=== PATIENT | female | born 1950 | race Caucasian/White ===

== ENCOUNTER → 2016-09-01 | Outpatient (CLI) | payer OTHER ==
[~2016-09-01] MED LIST: CARAFATE1 G1 PO; CARDURA4 MG PO; CIPRODEX 0.3%-7.5 M1; CLARITIN10 MG PO; COREG25 MG PO; COZAAR50 M1 PO; FLAGYL500 MG PO; HUMIRA40 MG/0.1 SC; HYZAAR 50/12.5M1 TAB PO; INDOCIN25 MG PO; INDOCIN50 MG PO; LUMIGAN 3 ML3 ML OP; LUMIGAN50 DRP OPH; OXYCODONE HCL5 MG PO; PRILOSEC20 MG PO; PROTONIX40 MG PO; SYNTHROID,LEV200 MCG PO
[2016-09-01 10:30] LABS: BASO % 0.2 % (0.0-1.0); EOS # 0.2 10*3/uL (0.0-0.4); EOS % 1.4 % (1.0-4.0); HEMATOCRIT 32.5 % (37.0-47.0); HEMOGLOBIN 9.6 g/dl (12.0-16.0); IG # 0.1 10*3/uL (0.0-0.1); LYMPH # 1.8 10*3/uL (1.3-4.4); LYMPH % 13.8 % (27.0-41.0); MEAN CELL VOLUME 82.5 fl (81.0-99.0); MEAN CORPUSCULAR HGB 24.4 pg (27.0-31.0); MEAN CORPUSCULAR HGB CONC 29.5 g/dl (33.0-37.0); MEAN PLATELET VOLUME 9.1 fl (9.6-12.3); MONO # 0.9 10*3/uL (0.1-1.0); MONO % 7.2 % (3.0-9.0); NEUT # 9.9 10*3/uL (2.3-7.9); NEUT % 76.9 % (47.0-73.0); PLATELET COUNT AUTOMATED 313 10*3/uL (130-400); RED BLOOD COUNT 3.94 10*6/uL (4.10-5.10); WHITE BLOOD COUNT 12.9 10*3/uL (4.8-10.8)
[2016-09-01 10:32] LABS: BILIRUBIN NEGATIVE (NEGATIVE); BLOOD 3+ (NEGATIVE); CLARITY SL CLOUDY (CLEAR); COLOR YELLOW (YELLOW); GLUCOSE NEGATIVE (NEGATIVE); KETONE NEGATIVE (NEGATIVE); LEUKO ESTERASE 2+ (NEGATIVE); NITRITE NEGATIVE (NEGATIVE); PH 5.5 (5.0-9.0); PROTEIN 1+ (NEGATIVE); UROBILINOGEN 0.2 E.U./dl (0.2-1.0)
[2016-09-01 10:46] LABS: URINE TP/CRE RATIO 0.5 (<0.21)
[2016-09-01 11:00] LABS: ALBUMIN 3.1 gm/dl (3.1-4.5); MAGNESIUM 1.6 mg/dL (1.5-2.1); PHOSPHOROUS 3.6 mg/dL (2.5-4.9); POTASSIUM 4.6 mmol/L (3.5-5.1)
[2016-09-01 12:24] LABS: BACTERIA 3+; EPITHELIAL CELLS 51-100; RBC 41-50 rbc/hpf (0-2); URINE REFLEX COMMENT YES (NO); WBC 51-100 wbc/hpf (0-5)
== END | disposition home or self-care (01) ==
LOC: LAB 10:08
PROVIDERS: Internal Medicine Nephrology
DX: N18.3 Chronic kidney disease, stage 3 (moderate) (principal)

== ENCOUNTER → 2016-10-16 | Outpatient (CLI) | payer OTHER ==
[2016-10-16 16:33] LABS: ALBUMIN 2.8 gm/dl (3.1-4.5); PHOSPHOROUS 3.8 mg/dL (2.5-4.9); POTASSIUM 4.6 mmol/L (3.5-5.1)
== END | disposition home or self-care (01) ==
LOC: LAB 15:35
PROVIDERS: Internal Medicine Nephrology
DX: N17.9 Acute kidney failure, unspecified (principal)

== ENCOUNTER → 2017-01-15 | Outpatient (CLI) | payer MEDICARE, OTHER ==
[2017-01-15 11:48] LABS: BASO # 0.1 10*3/uL (0.0-0.1); BASO % 0.4 % (0.0-1.0); EOS # 0.4 10*3/uL (0.0-0.4); EOS % 3.3 % (1.0-4.0); HEMATOCRIT 36.7 % (37.0-47.0); HEMOGLOBIN 11.2 g/dl (12.0-16.0); LYMPH # 3.4 10*3/uL (1.3-4.4); LYMPH % 28.7 % (27.0-41.0); MEAN CELL VOLUME 79.6 fl (81.0-99.0); MEAN CORPUSCULAR HGB 24.3 pg (27.0-31.0); MEAN CORPUSCULAR HGB CONC 30.5 g/dl (33.0-37.0); MEAN PLATELET VOLUME 9.6 fl (9.6-12.3); MONO # 0.8 10*3/uL (0.1-1.0); MONO % 6.4 % (3.0-9.0); NEUT # 7.3 10*3/uL (2.3-7.9); NEUT % 60.9 % (47.0-73.0); PLATELET COUNT AUTOMATED 271 10*3/uL (130-400); RED BLOOD COUNT 4.61 10*6/uL (4.10-5.10); RED CELL DISTRI WIDTH 16.9 % (0-14.5); WHITE BLOOD COUNT 11.9 10*3/uL (4.8-10.8)
[2017-01-15 11:49] LABS: BILIRUBIN NEGATIVE (NEGATIVE); BLOOD 3+ (NEGATIVE); CLARITY CLOUDY (CLEAR); COLOR YELLOW (YELLOW); GLUCOSE NEGATIVE (NEGATIVE); KETONE NEGATIVE (NEGATIVE); LEUKO ESTERASE 1+ (NEGATIVE); NITRITE NEGATIVE (NEGATIVE); PH 5.5 (5.0-9.0); PROTEIN TRACE (NEGATIVE); SPECIFIC GRAVITY 1.015 (1.005-1.030); UROBILINOGEN 0.2 E.U./dl (0.2-1.0)
[2017-01-15 12:05] LABS: URINE TP/CRE RATIO 0.4 (<0.21)
[2017-01-15 12:14] LABS: ALBUMIN 3.2 gm/dl (3.1-4.5); C-REACTIVE PROTEIN 1.48 MG/DL (0-0.3); MAGNESIUM 1.6 mg/dL (1.5-2.1); PHOSPHOROUS 3.6 mg/dL (2.5-4.9); POTASSIUM 4.4 mmol/L (3.5-5.1)
[2017-01-15 12:36] LABS: BACTERIA 2+; EPITHELIAL CELLS 15-20; RBC 51-100 rbc/hpf (0-2); URINE REFLEX COMMENT YES (NO)
== END | disposition home or self-care (01) ==
LOC: LAB 11:24
PROVIDERS: Internal Medicine Rheumatology
DX: N18.4 Chronic kidney disease, stage 4 (severe) (principal); E55.9 Vitamin D deficiency, unspecified; M54.9 Dorsalgia, unspecified; Z79.899 Other long term (current) drug therapy

== ENCOUNTER → 2017-05-14 | Outpatient (CLI) | payer MEDICARE, OTHER ==
[2017-05-14 14:07] LABS: BASO # 0.1 10*3/uL (0.0-0.1); BASO % 0.4 % (0.0-1.0); EOS # 0.3 10*3/uL (0.0-0.4); EOS % 2.7 % (1.0-4.0); HEMATOCRIT 33.8 % (37.0-47.0); HEMOGLOBIN 10.4 g/dl (12.0-16.0); LYMPH # 2.5 10*3/uL (1.3-4.4); LYMPH % 21.8 % (27.0-41.0); MEAN CELL VOLUME 83.3 fl (81.0-99.0); MEAN CORPUSCULAR HGB 25.6 pg (27.0-31.0); MEAN CORPUSCULAR HGB CONC 30.8 g/dl (33.0-37.0); MEAN PLATELET VOLUME 9.5 fl (9.6-12.3); MONO # 0.7 10*3/uL (0.1-1.0); MONO % 6.5 % (3.0-9.0); NEUT # 7.7 10*3/uL (2.3-7.9); NEUT % 68.2 % (47.0-73.0); PLATELET COUNT AUTOMATED 256 10*3/uL (130-400); RED BLOOD COUNT 4.06 10*6/uL (4.10-5.10); RED CELL DISTRI WIDTH 15.3 % (0-14.5); WHITE BLOOD COUNT 11.3 10*3/uL (4.8-10.8)
[2017-05-14 14:29] LABS: ALBUMIN 3.1 gm/dl (3.1-4.5); CREATININE 1.85 mg/dL (0.55-1.02); PHOSPHOROUS 3.1 mg/dL (2.5-4.9); POTASSIUM 4.3 mmol/L (3.5-5.1)
[2017-05-14 15:48] LABS: BILIRUBIN NEGATIVE (NEGATIVE); BLOOD 3+ (NEGATIVE); CLARITY CLEAR (CLEAR); COLOR YELLOW (YELLOW); GLUCOSE NEGATIVE (NEGATIVE); KETONE NEGATIVE (NEGATIVE); LEUKO ESTERASE NEGATIVE (NEGATIVE); NITRITE NEGATIVE (NEGATIVE); SPECIFIC GRAVITY 1.015 (1.005-1.030); UROBILINOGEN 0.2 E.U./dl (0.2-1.0)
[2017-05-14 15:56] LABS: URINE CREATININE RANDOM 72.1 mg/dL
[2017-05-14 15:57] LABS: RBC TNTC rbc/hpf (0-2)
== END | disposition home or self-care (01) ==
LOC: LAB 13:36
PROVIDERS: Internal Medicine Nephrology
DX: N18.4 Chronic kidney disease, stage 4 (severe) (principal); M45.9 Ankylosing spondylitis of unspecified sites in spine

== ENCOUNTER → 2017-08-21 | Outpatient (CLI) | payer MEDICARE, OTHER ==
[2017-08-21 13:19] LABS: BILIRUBIN NEGATIVE (NEGATIVE); BLOOD 3+ (NEGATIVE); CLARITY CLOUDY (CLEAR); COLOR YELLOW (YELLOW); GLUCOSE NEGATIVE (NEGATIVE); KETONE NEGATIVE (NEGATIVE); LEUKO ESTERASE NEGATIVE (NEGATIVE); NITRITE NEGATIVE (NEGATIVE); UROBILINOGEN 0.2 E.U./dl (0.2-1.0)
[2017-08-21 13:23] LABS: BASO # 0.1 10*3/uL (0.0-0.1); BASO % 0.5 % (0.0-1.0); EOS # 0.3 10*3/uL (0.0-0.4); EOS % 2.8 % (1.0-4.0); HEMATOCRIT 38.3 % (37.0-47.0); HEMOGLOBIN 11.6 g/dl (12.0-16.0); LYMPH # 2.9 10*3/uL (1.3-4.4); LYMPH % 25.8 % (27.0-41.0); MEAN CELL VOLUME 85.7 fl (81.0-99.0); MEAN CORPUSCULAR HGB CONC 30.3 g/dl (33.0-37.0); MEAN PLATELET VOLUME 9.5 fl (9.6-12.3); MONO # 0.7 10*3/uL (0.1-1.0); MONO % 6.4 % (3.0-9.0); NEUT # 7.2 10*3/uL (2.3-7.9); NEUT % 64.2 % (47.0-73.0); PLATELET COUNT AUTOMATED 266 10*3/uL (130-400); RED BLOOD COUNT 4.47 10*6/uL (4.10-5.10); RED CELL DISTRI WIDTH 15.4 % (0-14.5); RETICULOCYTE % 1.13 % (0.50-2.50); WHITE BLOOD COUNT 11.3 10*3/uL (4.8-10.8)
[2017-08-21 13:27] LABS: BACTERIA 1+; RBC 41-50 rbc/hpf (0-2); URINE CREATININE RANDOM 95.8 mg/dL
[2017-08-21 13:54] LABS: ALBUMIN 3.4 gm/dl (3.1-4.5); CREATININE 1.7 mg/dL (0.55-1.02); PHOSPHOROUS 3.2 mg/dL (2.5-4.9); POTASSIUM 4.2 mmol/L (3.5-5.1)
[2017-08-21 13:55] LABS: ALBUMIN 3.3 gm/dl (3.1-4.5); CREATININE 1.7 mg/dL (0.55-1.02); POTASSIUM 4.2 mmol/L (3.5-5.1); THYROXINE (T4) TOTAL 13.9 ug/dl (4.8-13.9); TOTAL PROTEIN 8.2 gm/dL (6.4-8.2)
[2017-08-21 14:01] LABS: THYROID STIM HORMONE (HS) 0.299 uIU/ml (0.358-4.75)
[2017-08-21 14:43] LABS: VITAMIN D, 25-HYDROXY 27.3 ng/mL (30-100)
[2017-08-21 14:44] LABS: FERRITIN 30.5 ng/mL (10.0-291.0)
== END | disposition home or self-care (01) ==
LOC: LAB 12:52
PROVIDERS: Family Medicine; Internal Medicine Nephrology
DX: N18.4 Chronic kidney disease, stage 4 (severe) (principal); R79.89 Other specified abnormal findings of blood chemistry; R53.83 Other fatigue; E55.9 Vitamin D deficiency, unspecified; Z79.899 Other long term (current) drug therapy

== ENCOUNTER → 2018-02-26 | Outpatient (CLI) | payer MEDICARE, OTHER ==
[2018-02-26 15:52] LABS: BASO # 0.1 10*3/uL (0.0-0.1); BASO % 0.5 % (0.0-1.0); EOS # 0.3 10*3/uL (0.0-0.4); EOS % 2.9 % (1.0-4.0); HEMATOCRIT 35.8 % (37.0-47.0); HEMOGLOBIN 11.3 g/dl (12.0-16.0); LYMPH # 2.6 10*3/uL (1.3-4.4); MEAN CELL VOLUME 86.3 fl (81.0-99.0); MEAN CORPUSCULAR HGB 27.2 pg (27.0-31.0); MEAN CORPUSCULAR HGB CONC 31.6 g/dl (33.0-37.0); MEAN PLATELET VOLUME 9.8 fl (9.6-12.3); MONO # 0.8 10*3/uL (0.1-1.0); MONO % 6.6 % (3.0-9.0); NEUT # 7.8 10*3/uL (2.3-7.9); NEUT % 67.7 % (47.0-73.0); PLATELET COUNT AUTOMATED 259 10*3/uL (130-400); RED BLOOD COUNT 4.15 10*6/uL (4.10-5.10); RED CELL DISTRI WIDTH 14.4 % (0-14.5); WHITE BLOOD COUNT 11.6 10*3/uL (4.8-10.8)
[2018-02-26 16:04] LABS: COLOR YELLOW (YELLOW)
[2018-02-26 16:05] LABS: BILIRUBIN NEGATIVE (NEGATIVE); BLOOD 3+ (NEGATIVE); CLARITY CLOUDY (CLEAR); GLUCOSE NEGATIVE (NEGATIVE); KETONE NEGATIVE (NEGATIVE); LEUKO ESTERASE 1+ (NEGATIVE); NITRITE NEGATIVE (NEGATIVE); SPECIFIC GRAVITY 1.015 (1.005-1.030); UROBILINOGEN 0.2 E.U./dl (0.2-1.0)
[2018-02-26 16:12] LABS: BACTERIA 1+; EPITHELIAL CELLS 21-30; RBC TNTC rbc/hpf (0-2)
[2018-02-26 16:16] LABS: ALBUMIN 3.2 gm/dl (3.1-4.5); CREATININE 2.05 mg/dL (0.55-1.02)
== END | disposition home or self-care (01) ==
LOC: LAB 15:15
PROVIDERS: Internal Medicine Nephrology
DX: N18.3 Chronic kidney disease, stage 3 (moderate) (principal); M45.9 Ankylosing spondylitis of unspecified sites in spine; Z79.899 Other long term (current) drug therapy

== ENCOUNTER → 2019-12-04 | Outpatient (CLI) | payer MEDICARE, OTHER | END | disposition home or self-care (01) | LOC: US 11:19 | DX: I73.9 Peripheral vascular disease, unspecified (principal) ==

== ENCOUNTER → 2019-12-04 | Emergency (ER) | payer MEDICARE, OTHER ==
[~2019-12-04] VITALS: Ht 165.1 cm; Wt 129.3 kg
[2019-12-04 16:40] LABS: BASO # 0.1 10*3/uL (0.0-0.1); BASO % 0.5 % (0.0-1.0); EOS # 0.5 10*3/uL (0.0-0.4); EOS % 3.1 % (1.0-4.0); HEMATOCRIT 36.4 % (37.0-47.0); LYMPH # 2.1 10*3/uL (1.3-4.4); MEAN CELL VOLUME 84.5 fl (81.0-99.0); MEAN CORPUSCULAR HGB 26.2 pg (27.0-31.0); MEAN PLATELET VOLUME 8.8 fl (9.6-12.3); MONO # 0.9 10*3/uL (0.1-1.0); MONO % 5.9 % (3.0-9.0); NEUT # 11.3 10*3/uL (2.3-7.9); NEUT % 76.1 % (47.0-73.0); PLATELET COUNT AUTOMATED 381 10*3/uL (130-400); RED BLOOD COUNT 4.31 10*6/uL (4.10-5.10); RED CELL DISTRI WIDTH 14.8 % (0-14.5); WHITE BLOOD COUNT 14.8 10*3/uL (4.8-10.8)
[2019-12-04 16:51] LABS: ACT PARTIAL THROMBO TIME 42.1 SECONDS (20.0-32.1)
[2019-12-04 16:55] LABS: ALBUMIN 3.2 gm/dl (3.1-4.5); CREATININE 2.19 mg/dL (0.55-1.02); POTASSIUM 4.6 mmol/L (3.5-5.1); TOTAL PROTEIN 8.4 gm/dL (6.4-8.2)
== END ==
LOC: ED 15:55
PROVIDERS: Emergency Medicine
DX: I82.4Z2 Acute embolism and thrombosis of unspecified deep veins of left distal lower extremity (principal); I70.292 Other atherosclerosis of native arteries of extremities, left leg; E66.01 Morbid (severe) obesity due to excess calories; K21.9 Gastro-esophageal reflux disease without esophagitis; E03.9 Hypothyroidism, unspecified; I12.9 Hypertensive chronic kidney disease with stage 1 through stage 4 chronic kidney disease, or unspecified chronic kidney disease; N18.4 Chronic kidney disease, stage 4 (severe); Z68.42 Body mass index [BMI] 45.0-49.9, adult; Z87.891 Personal history of nicotine dependence; Z87.11 Personal history of peptic ulcer disease; Z79.899 Other long term (current) drug therapy; Z88.6 Allergy status to analgesic agent; Z88.5 Allergy status to narcotic agent; Z99.2 Dependence on renal dialysis

== ENCOUNTER 2020-01-14 18:22 | Emergency (ER) | payer MEDICARE, OTHER ==
[2020-01-14 19:05] LABS: HEMATOCRIT 32.6 % (37.0-47.0); MEAN CELL VOLUME 83.6 fl (81.0-99.0); MEAN CORPUSCULAR HGB 25.1 pg (27.0-31.0); MEAN CORPUSCULAR HGB CONC 30.1 g/dl (33.0-37.0); MEAN PLATELET VOLUME 8.6 fl (9.6-12.3); PLATELET COUNT AUTOMATED 429 10*3/uL (130-400); RED CELL DISTRI WIDTH 15.7 % (0-14.5); WHITE BLOOD COUNT 17.7 10*3/uL (4.8-10.8)
[2020-01-14 19:20] LABS: ALBUMIN 2.6 gm/dl (3.1-4.5); CREATININE 2.1 mg/dL (0.55-1.02); POTASSIUM 4.4 mmol/L (3.5-5.1); TOTAL PROTEIN 8.2 gm/dL (6.4-8.2)
[2020-01-14 19:31] LABS: PLATELET SUFFICIENCY HIGH (NORMAL); TOTAL CELLS COUNTED 100 #CELLS
[2020-01-14] MEDS ORDERED: NEURONTIN300 MG PO (22:30)
== END 2020-01-14 23:33 | disposition home or self-care (01) ==
LOC: ED 18:22
PROVIDERS: Physician Assistant
DX: M79.605 Pain in left leg (principal); I10 Essential (primary) hypertension; M19.90 Unspecified osteoarthritis, unspecified site; Z88.8 Allergy status to other drugs, medicaments and biological substances; Z79.899 Other long term (current) drug therapy

== ENCOUNTER → 2020-02-20 | Emergency (ER) | payer MEDICARE, OTHER ==
[~2020-02-20] VITALS: Ht 175.2 cm; Wt 158.8 kg
[~2020-02-20] MED LIST changes: +NEURONTIN300 MG PO
[2020-02-20 12:21] LABS: URINE AMPHETAMINES < 1000 (1000ng/ml); URINE BARBITURATES < 200 (200ng/ml); URINE BENZODIAZEPINES > 200 (200ng/ml); URINE CANNABINOIDS (THC) < 50 (50ng/ml); URINE COCAINE < 300 (300ng/ml); URINE METHADONE < 300 (300ng/ml); URINE OPIATES > 300 (300ng/ml)
[2020-02-20 12:22] LABS: URINE PHENCYCLIDINE < 25 (25ng/ml)
[2020-02-20 12:25] LABS: BILIRUBIN Negative; BLOOD 3+ (NEGATIVE); CLARITY Clear (CLEAR); COLOR Yellow (YELLOW); GLUCOSE Negative; KETONE Negative; LEUKO ESTERASE Trace (NEGATIVE); NITRITE Negative (NEGATIVE); SPECIFIC GRAVITY 1.015 (1.001-1.030); UROBILINOGEN 0.2 E.U./dl (0.0-1.0)
[2020-02-20 12:31] LABS: BACTERIA TRACE; RBC 51-100 rbc/hpf (0-2)
[2020-02-20 14:13] LABS: ACT PARTIAL THROMBO TIME 38.6 SECONDS (20.0-32.1); INTERNATIONAL NORM RATIO 1.5 (2.0-3.5)
[2020-02-20 14:21] LABS: ALBUMIN 1.8 gm/dl (3.1-4.5); CREATININE 1.72 mg/dL (0.55-1.02); POTASSIUM 4.7 mmol/L (3.5-5.1); TOTAL PROTEIN 6.7 gm/dL (6.4-8.2)
[2020-02-20 14:26] LABS: ETHYL ALCOHOL < 3.0 mg/dl (<3); TROPONIN I < 0.015 ng/ml (<0.045)
[2020-02-20 15:14] LABS: BASO # 0.1 10*3/uL (0.0-0.1); BASO % 0.3 % (0.0-1.0); EOS # 0.3 10*3/uL (0.0-0.4); EOS % 2.1 % (1.0-4.0); HEMATOCRIT 27.4 % (37.0-47.0); LYMPH # 1.6 10*3/uL (1.3-4.4); LYMPH % 10.1 % (27.0-41.0); MEAN CELL VOLUME 87.3 fl (81.0-99.0); MEAN CORPUSCULAR HGB 24.8 pg (27.0-31.0); MEAN CORPUSCULAR HGB CONC 28.5 g/dl (33.0-37.0); MEAN PLATELET VOLUME 9.3 fl (9.6-12.3); MONO # 1.1 10*3/uL (0.1-1.0); MONO % 7.1 % (3.0-9.0); NEUT # 12.3 10*3/uL (2.3-7.9); NEUT % 79.6 % (47.0-73.0); PLATELET COUNT AUTOMATED 328 10*3/uL (130-400); RED BLOOD COUNT 3.14 10*6/uL (4.10-5.10); RED CELL DISTRI WIDTH 19.1 % (0-14.5); WHITE BLOOD COUNT 15.4 10*3/uL (4.8-10.8)
== END ==
LOC: ED 10:39
PROVIDERS: Emergency Medicine
DX: M79.605 Pain in left leg (principal); K21.9 Gastro-esophageal reflux disease without esophagitis; E03.9 Hypothyroidism, unspecified; I10 Essential (primary) hypertension; M19.90 Unspecified osteoarthritis, unspecified site; Z87.891 Personal history of nicotine dependence; Z88.8 Allergy status to other drugs, medicaments and biological substances; Z79.899 Other long term (current) drug therapy; Z79.2 Long term (current) use of antibiotics

== ENCOUNTER 2020-06-11 20:06 | Inpatient (IN) | payer MEDICARE, OTHER ==
[~2020-06-11] VITALS: Ht 170.2 cm; Wt 112.0 kg
[2020-06-11 20:13] VITALS: BP 106/74
[2020-06-11 20:45] VITALS: BP 128/74
[2020-06-11] MEDS ORDERED: PAIN RELIEVER650 MG PO (20:53)
[2020-06-11] MEDS ORDERED: ACETIC ACID 01000 ML IL (20:54)
[2020-06-11] MEDS ORDERED: NORVASC10 MG PO (20:54)
[2020-06-11] MEDS ORDERED: ARGINAID POWDE1 EACH PO (20:55)
[2020-06-11] MEDS ORDERED: ASPIRIN CHEWABL81 MG PO (20:55)
[2020-06-11] MEDS ORDERED: ATROVENT HFA12.9 GM INH (20:56)
[2020-06-11] MEDS ORDERED: GENTLE LAXATIVE10 MG R (20:57)
[2020-06-11] MEDS ORDERED: COREG12.5 M1 PO (20:58)
[2020-06-11] MEDS ORDERED: Clopidogrel75 MG PO (20:59)
[2020-06-11] MEDS ORDERED: CHAMOSYN OINTMEN5 GM TP (20:59)
[2020-06-11] MEDS ORDERED: CELEXA10 MG PO (21:00)
[2020-06-11] MEDS ORDERED: GABAPENTIN100 M2 PO (21:00)
[2020-06-11] MEDS ORDERED: Ipratropium Brom3 ML INH (21:00)
[2020-06-11] MEDS ORDERED: LATANOPROST2.5 ML OP (21:01)
[2020-06-11] MEDS ORDERED: ORAVIG50 MG BC (21:02)
[2020-06-11] MEDS ORDERED: LEVOTHYROXINE50 MCG PO (21:02)
[2020-06-11] MEDS ORDERED: MILK OF MA400 MG/51 PO (21:03)
[2020-06-11] MEDS ORDERED: ONDANSETRON HYDR4 M1 PO (21:04)
[2020-06-11 21:09] LABS: BILIRUBIN 1+ (Negative); BLOOD 2+ (Negative); CLARITY Turbid (Clear); COLOR Orange (Yellow); GLUCOSE Negative (Negative); KETONE Negative (Negative); LEUKO ESTERASE Negative (Negative); NITRITE Positive (Negative); PH 6.5 (4.5-8.0); SPECIFIC GRAVITY 1.015 (1.001-1.030); UROBILINOGEN 0.2 E.U./dl (0.0-1.0)
[2020-06-11 21:22] LABS: BACTERIA 4+; WBC TNTC wbc/hpf (0-5)
[2020-06-11 21:22] LABS: HEMATOCRIT 29.8 % (37.0-47.0); MEAN CELL VOLUME 81.4 fl (81.0-99.0); MEAN CORPUSCULAR HGB 24.9 pg (27.0-31.0); MEAN CORPUSCULAR HGB CONC 30.5 g/dl (33.0-37.0); MEAN PLATELET VOLUME 10.8 fl (9.6-12.3); PLATELET COUNT AUTOMATED 169 10*3/uL (130-400); RED BLOOD COUNT 3.66 10*6/uL (4.10-5.10); RED CELL DISTRI WIDTH 17.2 % (0-14.5); WHITE BLOOD COUNT 18.7 10*3/uL (4.8-10.8)
[2020-06-11 21:23] LABS: RBC 31-40 rbc/hpf (0-2)
[2020-06-11] MEDS ORDERED: PROTONIX40 MG PO (21:27)
[2020-06-11] MEDS ORDERED: OXYCODONE HCL5 M1 PO (21:27)
[2020-06-11] MEDS ORDERED: HEALTHYLAX17 GM PO (21:28)
[2020-06-11] MEDS ORDERED: [UNRECOGNIZED DRUG - CODE] SC (21:29)
[2020-06-11] MEDS ORDERED: PROVENTIL HFA6.7 GM INH (21:30)
[2020-06-11] MEDS ORDERED: QUETIAPINE FUMA25 MG PO (21:30)
[2020-06-11 21:31] VITALS: BP 130/79
[2020-06-11 21:31] LABS: INTERNATIONAL NORM RATIO 1.1 (2.0-3.5)
[2020-06-11 21:38] LABS: ALBUMIN 1.4 gm/dl (3.1-4.5); ALKALINE PHOSPHATASE 114 U/L (45-117); BUN 66 mg/dl (7-24); CHLORIDE 107 mmol/L (98-107); CREATININE 4.24 mg/dL (0.55-1.02); POTASSIUM 5.1 mmol/L (3.5-5.1); SGOT/AST 6 IU/L (3-35); SGPT/ALT 8 U/L (12-78); SODIUM 134 mmol/L (136-145); TOTAL PROTEIN 5.5 gm/dL (6.4-8.2)
[2020-06-11 21:43] LABS: PLATELET SUFFICIENCY NORMAL (NORMAL); TOTAL CELLS COUNTED 100 #CELLS; TROPONIN I < 0.015 ng/ml (<0.045)
[2020-06-11 22:00] VITALS: BP 132/74
[2020-06-11 22:30] VITALS: BP 95/51
[2020-06-11 23:10] VITALS: BP 122/74
[2020-06-12] VITALS (28 sets, daily range): BP systolic 76–102; BP diastolic 35–54
[2020-06-12 06:12] LABS: MEAN CELL VOLUME 83.6 fl (81.0-99.0); MEAN CORPUSCULAR HGB 25.7 pg (27.0-31.0); MEAN CORPUSCULAR HGB CONC 30.7 g/dl (33.0-37.0); MEAN PLATELET VOLUME 10.6 fl (9.6-12.3); PLATELET COUNT AUTOMATED 167 10*3/uL (130-400); RED BLOOD COUNT 3.35 10*6/uL (4.10-5.10); RED CELL DISTRI WIDTH 17.3 % (0-14.5); WHITE BLOOD COUNT 17.7 10*3/uL (4.8-10.8)
[2020-06-12 06:43] LABS: ALBUMIN 1.3 gm/dl (3.1-4.5); CREATININE 4.25 mg/dL (0.55-1.02)
[2020-06-12 06:49] LABS: FREE T4 0.56 ng/dl (0.76-1.46)
[2020-06-12 06:57] LABS: THYROID STIM HORMONE (HS) 2.2 uIU/ml (0.358-4.75)
[2020-06-12 07:08] LABS: VITAMIN D, 25-HYDROXY 29.7 ng/mL (30-100)
[2020-06-12 07:35] LABS: PLATELET SUFFICIENCY NORMAL (NORMAL); TOTAL CELLS COUNTED 100 #CELLS
[2020-06-12 21:33] LABS: ARTERIAL BLOOD GAS PH 7.303 (7.35-7.45)
[2020-06-12 21:34] LABS: ABG BASE EXCESS -8.1 mmol/L (-2.0-2.0)
[2020-06-12] MEDS ORDERED: LEXAPRO10 MG PO (23:13)
[2020-06-12] MEDS ORDERED: ZOFRAN4 MG PO (23:15)
[2020-06-12] MEDS ORDERED: [UNRECOGNIZED DRUG - CODE] IV (23:16)
[2020-06-12] MEDS ORDERED: SEROQUEL25 MG PO (23:19)
[2020-06-13] VITALS (95 sets, daily range): BP systolic 72–128; BP diastolic 43–75
[2020-06-13 00:25] LABS: ABG BASE EXCESS -10.4 mmol/L (-2.0-2.0); ARTERIAL BLOOD GAS PH 7.305 (7.35-7.45)
[2020-06-13 05:58] LABS: ALBUMIN 1.3 gm/dl (3.1-4.5); ALKALINE PHOSPHATASE 127 U/L (45-117); BUN 70 mg/dl (7-24); CHLORIDE 106 mmol/L (98-107); CREATININE 4.39 mg/dL (0.55-1.02); POTASSIUM 5.2 mmol/L (3.5-5.1); SGOT/AST 7 IU/L (3-35); SODIUM 135 mmol/L (136-145); TOTAL PROTEIN 5.5 gm/dL (6.4-8.2); TRIGLYCERIDES 155 mg/dl (<150)
[2020-06-13 06:06] LABS: SGPT/ALT < 6 U/L (12-78)
[2020-06-13 06:44] LABS: HEMATOCRIT 30.1 % (37.0-47.0); MEAN CELL VOLUME 83.6 fl (81.0-99.0); MEAN CORPUSCULAR HGB 25.6 pg (27.0-31.0); MEAN CORPUSCULAR HGB CONC 30.6 g/dl (33.0-37.0); MEAN PLATELET VOLUME 9.9 fl (9.6-12.3); RED CELL DISTRI WIDTH 17.4 % (0-14.5); WHITE BLOOD COUNT 30.5 10*3/uL (4.8-10.8)
[2020-06-13 06:45] LABS: PLATELET COUNT AUTOMATED 259 10*3/uL (130-400)
[2020-06-13 07:11] LABS: PLATELET SUFFICIENCY NORMAL (NORMAL); TOTAL CELLS COUNTED 100 #CELLS
[2020-06-13 08:14] LABS: ARTERIAL BLOOD GAS PH 7.275 (7.35-7.45)
[2020-06-13 08:15] LABS: ABG BASE EXCESS -13.4 mmol/L (-2.0-2.0)
[2020-06-13 13:25] LABS: ARTERIAL BLOOD GAS PH 7.258 (7.35-7.45)
[2020-06-13 13:26] LABS: ABG BASE EXCESS -14.7 mmol/L (-2.0-2.0)
[2020-06-13 19:40] LABS: ARTERIAL BLOOD GAS PH 7.238 (7.35-7.45)
[2020-06-13 19:41] LABS: ABG BASE EXCESS -13.8 mmol/L (-2.0-2.0)
[2020-06-14] VITALS (96 sets, daily range): BP systolic 84–130; BP diastolic 52–80
[2020-06-14 05:47] LABS: ALBUMIN 1.3 gm/dl (3.1-4.5); CREATININE 4.67 mg/dL (0.55-1.02); TOTAL PROTEIN 5.4 gm/dL (6.4-8.2)
[2020-06-14 06:14] LABS: HEMATOCRIT 30.7 % (37.0-47.0); MEAN CELL VOLUME 81.6 fl (81.0-99.0); MEAN CORPUSCULAR HGB 25.3 pg (27.0-31.0); MEAN CORPUSCULAR HGB CONC 30.9 g/dl (33.0-37.0); MEAN PLATELET VOLUME 9.6 fl (9.6-12.3); PLATELET COUNT AUTOMATED 312 10*3/uL (130-400); RED BLOOD COUNT 3.76 10*6/uL (4.10-5.10); RED CELL DISTRI WIDTH 17.3 % (0-14.5); WHITE BLOOD COUNT 28.2 10*3/uL (4.8-10.8)
[2020-06-14 06:48] LABS: BURR CELLS FEW; PLATELET SUFFICIENCY NORMAL (NORMAL); POLYCHROMASIA SLIGHT; TOTAL CELLS COUNTED 100 #CELLS
[2020-06-14 08:44] LABS: ARTERIAL BLOOD GAS PH 7.366 (7.35-7.45)
[2020-06-14 08:46] LABS: ABG BASE EXCESS -6.4 mmol/L (-2.0-2.0)
[2020-06-14 13:05] LABS: ABG BASE EXCESS -3.5 mmol/L (-2.0-2.0); ARTERIAL BLOOD GAS PH 7.437 (7.35-7.45)
[2020-06-15] VITALS (98 sets, daily range): BP systolic 86–161; BP diastolic 52–89
[2020-06-15 05:40] LABS: ALBUMIN 1.3 gm/dl (3.1-4.5); CREATININE 4.75 mg/dL (0.55-1.02); POTASSIUM 4.2 mmol/L (3.5-5.1); TOTAL PROTEIN 5.3 gm/dL (6.4-8.2)
[2020-06-15 06:53] LABS: HEMATOCRIT 29.4 % (37.0-47.0); MEAN CELL VOLUME 78.6 fl (81.0-99.0); MEAN CORPUSCULAR HGB 25.1 pg (27.0-31.0); MEAN PLATELET VOLUME 9.6 fl (9.6-12.3); PLATELET COUNT AUTOMATED 259 10*3/uL (130-400); RED BLOOD COUNT 3.74 10*6/uL (4.10-5.10); RED CELL DISTRI WIDTH 17.2 % (0-14.5); WHITE BLOOD COUNT 21.6 10*3/uL (4.8-10.8)
[2020-06-15 07:21] LABS: ABG BASE EXCESS -0.8 mmol/L (-2.0-2.0); ARTERIAL BLOOD GAS PH 7.502 (7.35-7.45)
[2020-06-15 08:30] LABS: BURR CELLS FEW; MICROCYTOSIS SLIGHT; OVALOCYTES FEW; PLATELET SUFFICIENCY NORMAL (NORMAL); TOTAL CELLS COUNTED 100 #CELLS
[2020-06-15 08:31] LABS: POLYCHROMASIA SLIGHT; TOXIC GRANULATION SLIGHT
[2020-06-15 14:50] LABS: ABG BASE EXCESS 0.1 mmol/L (-2.0-2.0); ARTERIAL BLOOD GAS PH 7.5 (7.35-7.45)
[2020-06-15 16:39] LABS: ABG BASE EXCESS -0.2 mmol/L (-2.0-2.0); ARTERIAL BLOOD GAS PH 7.409 (7.35-7.45)
[2020-06-16] VITALS (96 sets, daily range): BP systolic 88–126; BP diastolic 48–87
[2020-06-16 05:58] LABS: ALBUMIN 1.2 gm/dl (3.1-4.5); CREATININE 4.45 mg/dL (0.55-1.02); TOTAL PROTEIN 4.8 gm/dL (6.4-8.2)
[2020-06-16 06:19] LABS: HEMATOCRIT 26.7 % (37.0-47.0); MEAN CELL VOLUME 79.2 fl (81.0-99.0); MEAN CORPUSCULAR HGB 24.6 pg (27.0-31.0); MEAN CORPUSCULAR HGB CONC 31.1 g/dl (33.0-37.0); MEAN PLATELET VOLUME 9.8 fl (9.6-12.3); PLATELET COUNT AUTOMATED 200 10*3/uL (130-400); RED BLOOD COUNT 3.37 10*6/uL (4.10-5.10); RED CELL DISTRI WIDTH 16.7 % (0-14.5); WHITE BLOOD COUNT 21.4 10*3/uL (4.8-10.8)
[2020-06-16 07:02] LABS: MICROCYTOSIS SLIGHT; OVALOCYTES FEW; PLATELET SUFFICIENCY NORMAL (NORMAL); TOTAL CELLS COUNTED 100 #CELLS
[2020-06-16 07:20] LABS: ABG BASE EXCESS 0.1 mmol/L (-2.0-2.0); ARTERIAL BLOOD GAS PH 7.412 (7.35-7.45)
[2020-06-16 13:57] LABS: ABG BASE EXCESS 0.8 mmol/L (-2.0-2.0); ARTERIAL BLOOD GAS PH 7.422 (7.35-7.45)
[2020-06-17] VITALS (96 sets, daily range): BP systolic 67–177; BP diastolic 44–112
[2020-06-17 05:24] LABS: ALBUMIN 1.3 gm/dl (3.1-4.5); CREATININE 4.47 mg/dL (0.55-1.02); TOTAL PROTEIN 5.4 gm/dL (6.4-8.2)
[2020-06-17 06:08] LABS: HEMATOCRIT 28.2 % (37.0-47.0); MEAN CELL VOLUME 78.6 fl (81.0-99.0); MEAN CORPUSCULAR HGB 24.8 pg (27.0-31.0); MEAN CORPUSCULAR HGB CONC 31.6 g/dl (33.0-37.0); MEAN PLATELET VOLUME 10.1 fl (9.6-12.3); PLATELET COUNT AUTOMATED 199 10*3/uL (130-400); RED BLOOD COUNT 3.59 10*6/uL (4.10-5.10); RED CELL DISTRI WIDTH 16.3 % (0-14.5); WHITE BLOOD COUNT 31.6 10*3/uL (4.8-10.8)
[2020-06-17 06:29] LABS: TOTAL CELLS COUNTED 100 #CELLS
[2020-06-17 06:30] LABS: MICROCYTOSIS SLIGHT; PLATELET SUFFICIENCY NORMAL (NORMAL); POLYCHROMASIA SLIGHT; TOXIC GRANULATION SLIGHT
[2020-06-17 07:49] LABS: ABG BASE EXCESS -1.5 mmol/L (-2.0-2.0); ARTERIAL BLOOD GAS PH 7.313 (7.35-7.45)
[2020-06-18] VITALS (100 sets, daily range): BP systolic 77–135; BP diastolic 48–114
[2020-06-18 06:28] LABS: HEMATOCRIT 22.3 % (37.0-47.0); MEAN CELL VOLUME 79.1 fl (81.0-99.0); MEAN CORPUSCULAR HGB 24.8 pg (27.0-31.0); MEAN CORPUSCULAR HGB CONC 31.4 g/dl (33.0-37.0); PLATELET COUNT AUTOMATED 156 10*3/uL (130-400); RED BLOOD COUNT 2.82 10*6/uL (4.10-5.10); RED CELL DISTRI WIDTH 16.1 % (0-14.5); WHITE BLOOD COUNT 26.1 10*3/uL (4.8-10.8)
[2020-06-18 06:54] LABS: ALBUMIN 1.3 gm/dl (3.1-4.5); CREATININE 4.5 mg/dL (0.55-1.02); POTASSIUM 3.6 mmol/L (3.5-5.1)
[2020-06-18 07:29] LABS: ABG BASE EXCESS 0.7 mmol/L (-2.0-2.0); ARTERIAL BLOOD GAS PH 7.423 (7.35-7.45)
[2020-06-18 08:04] LABS: MICROCYTOSIS MODERATE; TOTAL CELLS COUNTED 100 #CELLS
[2020-06-18 08:05] LABS: PLATELET SUFFICIENCY NORMAL (NORMAL)
[2020-06-18 12:03] LABS: HEMATOCRIT 21.8 % (37.0-47.0); MEAN CELL VOLUME 80.4 fl (81.0-99.0); MEAN CORPUSCULAR HGB 25.1 pg (27.0-31.0); MEAN CORPUSCULAR HGB CONC 31.2 g/dl (33.0-37.0); MEAN PLATELET VOLUME 10.2 fl (9.6-12.3); PLATELET COUNT AUTOMATED 144 10*3/uL (130-400); RED BLOOD COUNT 2.71 10*6/uL (4.10-5.10); RED CELL DISTRI WIDTH 16.4 % (0-14.5); WHITE BLOOD COUNT 25.1 10*3/uL (4.8-10.8)
[2020-06-18 12:43] LABS: PLATELET SUFFICIENCY NORMAL (NORMAL); TOTAL CELLS COUNTED 100 #CELLS
[2020-06-18 14:23] LABS: ARTERIAL BLOOD GAS PH 7.437 (7.35-7.45)
[2020-06-18 17:46] LABS: ABG BASE EXCESS 1.2 mmol/L (-2.0-2.0); ARTERIAL BLOOD GAS PH 7.434 (7.35-7.45)
[2020-06-18 20:11] LABS: ABG BASE EXCESS 2.1 mmol/L (-2.0-2.0); ARTERIAL BLOOD GAS PH 7.469 (7.35-7.45)
[2020-06-18 21:34] LABS: HEMATOCRIT 23.1 % (37.0-47.0); MEAN CELL VOLUME 80.8 fl (81.0-99.0); MEAN CORPUSCULAR HGB 25.5 pg (27.0-31.0); MEAN CORPUSCULAR HGB CONC 31.6 g/dl (33.0-37.0); MEAN PLATELET VOLUME 10.3 fl (9.6-12.3); PLATELET COUNT AUTOMATED 129 10*3/uL (130-400); RED BLOOD COUNT 2.86 10*6/uL (4.10-5.10); WHITE BLOOD COUNT 21.6 10*3/uL (4.8-10.8)
[2020-06-18 21:50] LABS: PLATELET SUFFICIENCY NORMAL (NORMAL); TOTAL CELLS COUNTED 100 #CELLS
[2020-06-18 21:51] LABS: MICROCYTOSIS SLIGHT
[2020-06-19] VITALS (14 sets, daily range): BP systolic 102–117; BP diastolic 50–59
[2020-06-19 06:21] LABS: HEMATOCRIT 23.7 % (37.0-47.0); MEAN CELL VOLUME 80.6 fl (81.0-99.0); MEAN CORPUSCULAR HGB 25.5 pg (27.0-31.0); MEAN CORPUSCULAR HGB CONC 31.6 g/dl (33.0-37.0); MEAN PLATELET VOLUME 10.1 fl (9.6-12.3); PLATELET COUNT AUTOMATED 129 10*3/uL (130-400); RED BLOOD COUNT 2.94 10*6/uL (4.10-5.10); RED CELL DISTRI WIDTH 16.2 % (0-14.5); WHITE BLOOD COUNT 20.3 10*3/uL (4.8-10.8)
[2020-06-19 06:46] LABS: ALBUMIN 1.6 gm/dl (3.1-4.5); POTASSIUM 3.9 mmol/L (3.5-5.1)
[2020-06-19 06:48] LABS: CREATININE 4.29 mg/dL (0.55-1.02); TOTAL PROTEIN 5.1 gm/dL (6.4-8.2)
[2020-06-19 06:52] LABS: OVALOCYTES FEW; PLATELET SUFFICIENCY NORMAL (NORMAL); TOTAL CELLS COUNTED 100 #CELLS
[2020-06-19 06:53] LABS: MICROCYTOSIS SLIGHT
[2020-06-19 08:02] LABS: ABG BASE EXCESS 0.2 mmol/L (-2.0-2.0); ARTERIAL BLOOD GAS PH 7.422 (7.35-7.45)
[2020-06-19 15:12] LABS: ABG BASE EXCESS 1.4 mmol/L (-2.0-2.0); ARTERIAL BLOOD GAS PH 7.503 (7.35-7.45)
[2020-06-19 19:24] LABS: ARTERIAL BLOOD GAS PH 7.436 (7.35-7.45)
[2020-06-20] VITALS (13 sets, daily range): BP systolic 97–117; BP diastolic 46–54
[2020-06-20 06:14] LABS: HEMATOCRIT 21.1 % (37.0-47.0); MEAN CELL VOLUME 82.4 fl (81.0-99.0); MEAN CORPUSCULAR HGB 26.2 pg (27.0-31.0); MEAN CORPUSCULAR HGB CONC 31.8 g/dl (33.0-37.0); MEAN PLATELET VOLUME 10.8 fl (9.6-12.3); PLATELET COUNT AUTOMATED 121 10*3/uL (130-400); RED BLOOD COUNT 2.56 10*6/uL (4.10-5.10); RED CELL DISTRI WIDTH 16.6 % (0-14.5); WHITE BLOOD COUNT 17.6 10*3/uL (4.8-10.8)
[2020-06-20 06:23] LABS: ALBUMIN 1.5 gm/dl (3.1-4.5); CREATININE 4.27 mg/dL (0.55-1.02); POTASSIUM 3.6 mmol/L (3.5-5.1); TOTAL PROTEIN 4.7 gm/dL (6.4-8.2)
[2020-06-20 07:23] LABS: BASOPHILS 1 % (0-1); OVALOCYTES FEW; PLATELET SUFFICIENCY LOW (NORMAL); TOTAL CELLS COUNTED 100 #CELLS
[2020-06-20 07:53] LABS: ABG BASE EXCESS 1.2 mmol/L (-2.0-2.0); ARTERIAL BLOOD GAS PH 7.444 (7.35-7.45)
[2020-06-20 14:41] LABS: HEMATOCRIT 24.3 % (37.0-47.0); MEAN CELL VOLUME 82.7 fl (81.0-99.0); MEAN CORPUSCULAR HGB 26.2 pg (27.0-31.0); MEAN CORPUSCULAR HGB CONC 31.7 g/dl (33.0-37.0); MEAN PLATELET VOLUME 10.1 fl (9.6-12.3); PLATELET COUNT AUTOMATED 124 10*3/uL (130-400); RED BLOOD COUNT 2.94 10*6/uL (4.10-5.10)
[2020-06-20 15:23] LABS: PLATELET SUFFICIENCY LOW (NORMAL); TOTAL CELLS COUNTED 100 #CELLS
== END 2020-06-20 20:20 | disposition short-term general hospital (02) | DRG 870 ==
LOC: ED 20:06 → EDHOLD 06-12 01:46 → ICCU 06-12 01:46 → EDHOLD 06-12 20:32 → ICCU 06-12 20:35
PROVIDERS: Emergency Medicine; Hospitalist; Internal Medicine; Internal Medicine Critical Care Medicine; ADMIT Family Medicine; ATTEND Family Medicine
PROC: 02HV33Z Insertion of Infusion Device into Superior Vena Cava, Percutaneous Approach (ICD-10-PCS; 2020-06-12)
PROC: B548ZZA Ultrasonography of Superior Vena Cava, Guidance (ICD-10-PCS; 2020-06-12)
PROC: 03HY32Z Insertion of Monitoring Device into Upper Artery, Percutaneous Approach (ICD-10-PCS; 2020-06-12)
PROC: 5A09357 Assistance with Respiratory Ventilation, Less than 24 Consecutive Hours, Continuous Positive Airway Pressure (ICD-10-PCS; 2020-06-12)
PROC: 5A1955Z Respiratory Ventilation, Greater than 96 Consecutive Hours (ICD-10-PCS; 2020-06-13)
PROC: 0BH17EZ Insertion of Endotracheal Airway into Trachea, Via Natural or Artificial Opening (ICD-10-PCS; 2020-06-13)
PROC: 30233N1 Transfusion of Nonautologous Red Blood Cells into Peripheral Vein, Percutaneous Approach (ICD-10-PCS; principal; 2020-06-18)
PROC: 5A09357 Assistance with Respiratory Ventilation, Less than 24 Consecutive Hours, Continuous Positive Airway Pressure (ICD-10-PCS; 2020-06-18)
PROC: 5A09357 Assistance with Respiratory Ventilation, Less than 24 Consecutive Hours, Continuous Positive Airway Pressure (ICD-10-PCS; 2020-06-19)
DX: A41.81 Sepsis due to Enterococcus (principal); R65.21 Severe sepsis with septic shock; J96.01 Acute respiratory failure with hypoxia; G93.41 Metabolic encephalopathy; N17.0 Acute kidney failure with tubular necrosis; U07.1 COVID-19; J12.82 Pneumonia due to coronavirus disease 2019; A48.1 Legionnaires' disease; T83.518A Infection and inflammatory reaction due to other urinary catheter, initial encounter; E44.0 Moderate protein-calorie malnutrition; J93.9 Pneumothorax, unspecified; J98.11 Atelectasis; D68.59 Other primary thrombophilia; I13.0 Hypertensive heart and chronic kidney disease with heart failure and stage 1 through stage 4 chronic kidney disease, or unspecified chronic kidney disease; E87.3 Alkalosis; Z68.35 Body mass index [BMI] 35.0-35.9, adult; A41.51 Sepsis due to Escherichia coli [E. coli]; K80.20 Calculus of gallbladder without cholecystitis without obstruction; E86.0 Dehydration; K21.9 Gastro-esophageal reflux disease without esophagitis; I50.9 Heart failure, unspecified; D64.9 Anemia, unspecified; H40.10X0 Unspecified open-angle glaucoma, stage unspecified; N18.9 Chronic kidney disease, unspecified; I95.9 Hypotension, unspecified; E88.09 Other disorders of plasma-protein metabolism, not elsewhere classified; E03.9 Hypothyroidism, unspecified; E66.01 Morbid (severe) obesity due to excess calories; R31.9 Hematuria, unspecified; R73.9 Hyperglycemia, unspecified; J30.2 Other seasonal allergic rhinitis; Y83.8 Other surgical procedures as the cause of abnormal reaction of the patient, or of later complication, without mention of misadventure at the time of the procedure; E87.5 Hyperkalemia; S81.802A Unspecified open wound, left lower leg, initial encounter; S71.002A Unspecified open wound, left hip, initial encounter; S91.302A Unspecified open wound, left foot, initial encounter; S51.801A Unspecified open wound of right forearm, initial encounter; B95.2 Enterococcus as the cause of diseases classified elsewhere; E87.8 Other disorders of electrolyte and fluid balance, not elsewhere classified; D69.6 Thrombocytopenia, unspecified; Z87.11 Personal history of peptic ulcer disease; Z83.3 Family history of diabetes mellitus; Y92.89 Other specified places as the place of occurrence of the external cause; Z88.6 Allergy status to analgesic agent; Z88.8 Allergy status to other drugs, medicaments and biological substances; Z98.42 Cataract extraction status, left eye; Z98.41 Cataract extraction status, right eye; Z87.891 Personal history of nicotine dependence; Z86.718 Personal history of other venous thrombosis and embolism; Z98.49 Cataract extraction status, unspecified eye; X58.XXXA Exposure to other specified factors, initial encounter; Y93.89 Activity, other specified; Y99.8 Other external cause status